=== PATIENT | female | born 1990 | race Caucasian/White ===

== ENCOUNTER 2021-06-11 07:45 | Emergency (ER) | payer OTHER ==
[2021-06-11 09:05] LABS: BASOPHIL 0.2 % (0-2); EOSINOPHIL 0.5 % (0-5); HGB 12.7 g/dl (12.5-16.0); LYMPHOCYTE 8.5 % (15-48); MCHC 33.4 g/dL (32.0-36.0); MCV 86.8 fL (78.0-100.0); MONOCYTE 4.6 % (0-12); MPV 9.5 fL (6.0-9.5); NEUTROPHIL 85.8 % (41-80); NRBC 0; PLT 213 K/uL (150-400); RBC 4.38 M/uL (4.20-5.40); RDW 12.6 % (11.5-14.0); WBC 14.9 K/uL (4.0-10.5)
[2021-06-11 09:26] LABS: ALBUMIN 3.8 g/dL (3.4-5.0); BILIRUBIN - TOTAL 0.4 mg/dL (0.2-1.0); BUN/CREAT RATIO (CALC) 26.9 RATIO; CREATININE 0.52 mg/dL (0.51-0.95); GLOBULIN (CALCULATION) 3.9 g/dL; POTASSIUM 3.6 mmol/L (3.5-5.1); TOTAL PROTEIN 7.7 g/dL (6.4-8.2)
[2021-06-11] MEDS ORDERED: VENTOLIN HFA18 GM INH (10:47)
[2021-06-11] MEDS ORDERED: LANSOPRAZOLE15 MG PO (10:47)
[2021-06-11] MEDS ORDERED: AMOXICILLIN875 MG PO (10:48)
== END 2021-06-11 11:15 | disposition home or self-care (01) ==
LOC: FER 07:45
PROVIDERS: Emergency Medicine
DX: O99.891 Other specified diseases and conditions complicating pregnancy (principal); R07.89 Other chest pain; Z3A.12 12 weeks gestation of pregnancy; Z20.822 Contact with and (suspected) exposure to COVID-19
CPT/HCPCS: 36415; 80053; 84484; 85025; 85379; 93005; U0002